=== PATIENT | male | born 1995 | race African-American/Black ===

== ENCOUNTER 2021-11-28 15:57 | Emergency (ER) | payer OTHER, BC ==
[~2021-11-28] VITALS: Ht 172 cm; Wt 96.6 kg
[2021-11-28 16:00] VITALS: BP 150/93
[2021-11-28] MEDS ORDERED: KETOROLAC 30 MG/ML VIAL IM STA (16:17)
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
== END 2021-11-28 17:15 | disposition home or self-care (01) ==
LOC: ER 16:00
DX: M79.10 Myalgia, unspecified site (principal); Z28.310 Unvaccinated for COVID-19; V47.1XXA Car passenger injured in collision with fixed or stationary object in nontraffic accident, initial encounter; Y92.410 Unspecified street and highway as the place of occurrence of the external cause
CPT/HCPCS: 70450; 71045; 72125; 72128

== ENCOUNTER 2022-03-31 19:19 | Emergency (ER) | payer BC ==
[~2022-03-31] VITALS: Ht 172.7 cm; Wt 81.6 kg
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
[2022-03-31 19:54] VITALS: BP 126/76
== END 2022-03-31 19:55 | disposition home or self-care (01) ==
LOC: EDUNIT# 19:19 → ER 19:22
DX: M25.532 Pain in left wrist (principal); G89.29 Other chronic pain; M25.521 Pain in right elbow; Z28.310 Unvaccinated for COVID-19
CPT/HCPCS: 99281